=== PATIENT | male | born 1965 | race African-American/Black ===

== ENCOUNTER 2019-07-04 13:10 | Observation (INO) ==
[2019-07-04 13:34] LABS: Basophils % 0.5 % (0.0-0.8); Eosinophils % 0.5 % (0.00-10.9); Hematocrit 45.5 VOL% (42.0-52.0); Hemoglobin 14.7 GM/DL (14.0-18.0); Immature Granulocytes Absolute 0.15 #; Lymphocytes # 0.7 10*3/uL (1.4-4.0); Lymphocytes % 9.4 % (21.2-54.2); Mean Corpuscular HGB Conc 32.3 GM/DL (32-36); Mean Corpuscular Volume 88.3 FL (87-102); Mean Platelet Volume 10.4 FL (9.6-12.0); Monocytes % 14.8 % (1.7-12.7); Neutrophils % 72.8 % (38.7-73.9); Platelet Count 186 T/CUMM (130-400); Red Blood Count 5.15 MC/CUMM (3.8-5.5); Red Cell Distribution Width 15.2 % (9.3-17.3); White Blood Count 7.4 T/CUMM (4-12)
[2019-07-04 13:47] LABS: PT Patient Result 11.1 SECS (9.6-12.2); Partial Thromboplastin Time 26.9 SECS (20.8-36.0)
[2019-07-04] MEDS ORDERED: MORPHINE 4 MG/1 ML VIAL IV STA (13:54)
[2019-07-04 13:55] LABS: Albumin 3.8 G/DL (3.4-5.0); Bilirubin,Total 1.2 MG/DL (0.2-1.0); Calcium 8.9 MG/DL (8.5-10.1); Osmolality,Calculated 270.2 MOS/KG (273-304); Total Protein 7.1 G/DL (6.4-8.3)
[2019-07-04] MEDS ORDERED: NITROGLYCERIN 2% OINT 1 INCH/GM PACK TOP STA (13:56)
[2019-07-04] MEDS ORDERED: ONDANSETRON 4 MG/2 ML VIAL IV ONE (14:41)
[2019-07-04] MEDS ORDERED: POTASSIUM CHLORIDE 20 MEQ TABLET PO STA (14:41)
[2019-07-04] MEDS ORDERED: ACETAMINOPHEN 325 MG TABLET PO PRN (16:11)
[2019-07-04] MEDS ORDERED: ONDANSETRON 4 MG/2 ML VIAL IV PRN (16:11)
[2019-07-04] MEDS ORDERED: NITROGLYCERIN SL 0.4 MG TABLET SL PRN (16:18)
[2019-07-04] MEDS ORDERED: GLUCAGON 1 MG VIAL IM PRN (16:22)
[2019-07-04] MEDS ORDERED: DEXTROSE 10% 25 GM/250 ML BAG IV PRN (16:22)
[2019-07-04 16:37] LABS: Apearance,Urine CLEAR (Clear); Bilirubin,Urine Negative (Negative); Blood, Urine Negative (Negative); Glucose,Urine (UA) Negative (Negative); Ketones,Urine Negative (Negative); Nitrite,Urine Negative (Negative); Protein,Urine Negative; RBC,Urine 1 /HPF (0-4); Squamous Epithelial Cell,Urine Occasional /HPF (0-10); Urine Color Yellow (Yellow); Urine Specific Gravity 1.042 (1.001-1.035); WBC,Urine 1 /HPF (0-6)
[2019-07-04] MEDS: INSULIN REGULAR 100 UNIT/ML SUBCUT SCH ×2 (17:46→21:28)
[2019-07-04] MEDS: ENOXAPARIN 40 MG/0.4 ML SYRINGE SUBCUT SCH (17:46)
[2019-07-04] MEDS: OSELTAMIVIR 75 MG CAPSULE PO SCH (21:28)
[2019-07-05] MEDS: INSULIN REGULAR 100 UNIT/ML SUBCUT SCH ×4 (07:50→20:27)
[2019-07-05 08:02] LABS: Albumin 3.3 G/DL (3.4-5.0); Bilirubin,Total 1.2 MG/DL (0.2-1.0); Calcium 8.7 MG/DL (8.5-10.1); Total Protein 6.4 G/DL (6.4-8.3)
[2019-07-05] MEDS: amLODIPine 5 MG TABLET PO SCH (09:07)
[2019-07-05] MEDS: oxyCODONE/ACETAMINOPHEN 5-325 MG TABLET PO PRN ×3 (09:07→21:02)
[2019-07-05] MEDS: FEBUXOSTAT 80 MG TABLET PO SCH (09:07)
[2019-07-05] MEDS: COLCHICINE 0.6 MG CAPSULE PO SCH (09:07)
[2019-07-05] MEDS: POTASSIUM CHLORIDE 10 MEQ TABLET PO SCH (09:07)
[2019-07-05] MEDS: ROSUVASTATIN 20 MG TABLET PO SCH (09:07)
[2019-07-05] MEDS: sitaGLIPtin 100 MG TABLET PO SCH (09:08)
[2019-07-05] MEDS: FUROSEMIDE 20 MG TABLET PO SCH (09:08)
[2019-07-05] MEDS: ASPIRIN EC 81 MG TABLET PO SCH (09:08)
[2019-07-05] MEDS: predniSONE 5 MG TABLET PO SCH (09:08)
[2019-07-05] MEDS: OSELTAMIVIR 75 MG CAPSULE PO SCH ×2 (09:08→20:59)
[2019-07-05] MEDS: CLOPIDOGREL 75 MG TABLET PO SCH (09:08)
[2019-07-05] MEDS: ISOSORBIDE MONONITRATE 30 MG TABLET PO SCH (09:08)
[2019-07-05] MEDS: PANTOPRAZOLE 40 MG TABLET PO SCH (09:08)
[2019-07-05] MEDS: LOSARTAN 50 MG TABLET PO SCH (09:08)
[2019-07-05] MEDS: POTASSIUM CHLORIDE 20 MEQ TABLET PO PRN ×4 (12:26→21:00)
[2019-07-05] MEDS: ENOXAPARIN 40 MG/0.4 ML SYRINGE SUBCUT SCH (17:16)
[2019-07-06 08:06] VITALS: BP 117/59
[2019-07-06] MEDS: INSULIN REGULAR 100 UNIT/ML SUBCUT SCH (08:29)
[2019-07-06] MEDS: ROSUVASTATIN 20 MG TABLET PO SCH (08:29)
[2019-07-06] MEDS: LOSARTAN 50 MG TABLET PO SCH (08:30)
[2019-07-06] MEDS: amLODIPine 5 MG TABLET PO SCH (08:30)
[2019-07-06] MEDS: ISOSORBIDE MONONITRATE 30 MG TABLET PO SCH (08:30)
[2019-07-06] MEDS: sitaGLIPtin 100 MG TABLET PO SCH (08:30)
[2019-07-06] MEDS: predniSONE 5 MG TABLET PO SCH (08:30)
[2019-07-06] MEDS: COLCHICINE 0.6 MG CAPSULE PO SCH (08:30)
[2019-07-06] MEDS: OSELTAMIVIR 75 MG CAPSULE PO SCH (08:31)
[2019-07-06] MEDS: FUROSEMIDE 20 MG TABLET PO SCH (08:31)
[2019-07-06] MEDS: CLOPIDOGREL 75 MG TABLET PO SCH (08:31)
[2019-07-06] MEDS: ASPIRIN EC 81 MG TABLET PO SCH (08:31)
[2019-07-06] MEDS: FEBUXOSTAT 80 MG TABLET PO SCH (08:31)
[2019-07-06] MEDS: PANTOPRAZOLE 40 MG TABLET PO SCH (08:31)
[2019-07-06] MEDS: POTASSIUM CHLORIDE 20 MEQ TABLET PO PRN (08:31)
[2019-07-06] MEDS: POTASSIUM CHLORIDE 10 MEQ TABLET PO SCH (08:38)
[2019-07-06] MEDS ORDERED: RANOLAZINE 500 MG TABLET PO SCH (11:29)
== END 2019-07-06 12:11 | disposition home or self-care (01) ==
LOC: N.EDINP 13:10 → N.ED 13:10 → SUATTDRO 16:11 → N.5E 17:12
PROVIDERS: ADMIT Internal Medicine; ATTEND Internal Medicine